=== PATIENT | female | born 1970 | race Caucasian/White ===

== ENCOUNTER → 2018-01-07 | Outpatient (CLI) | payer BC ==
[~2018-01-07] MED LIST: IBU800 PO
--- NOTE | 2018-01-07 16:05 | RADIOLOGY IMAGING REPORT ---
FAC[place] [facility] [place]IENT NAME: RIA THEODORE : [id number] MR: [id number] V: [id number] EXAM DATE: [id number] ORDERING PHYSICIAN: JULEE FAULKNER TECHNOLOGIST: Sarah Priest PROCEDURE:BILATERAL DIGITAL SCREENING MAMMOGRAM WITH CAD ASSISTED INTERPRETATION & 3D TOMOSYNTHESIS COMPARISON:Prior mammograms 01/05/2017, 12/22/2015, 10/29/2014. INDICATIONS:SCREENING FINDINGS: The breast tissue demonstrates scattered fibroglandular densities. Scattered asymmetries are stable. There is no dominant mass, suspicious cluster of microcalcifications or persistent areas of architectural distortion. DIAGNOSTIC CATEGORY 1--NEGATIVE. RECOMMENDATIONS: ROUTINE MAMMOGRAM AND CLINICAL EVALUATION IN 1 YR. IMPRESSION: BIRADS 1: Negative. Dictated by: Elio Estevez M.D. on 01/07/2018 at 15:54 Transcribed by: YOHANA on 01/07/2018 at 16:00 Approved by: Elio Estevez M.D. on 01/07/2018 at 16:04 [facility]
== END ==
LOC: MAMO 03:14
PROVIDERS: ATTEND Nurse Practitioner Family
DX: Z12.31 Encounter for screening mammogram for malignant neoplasm of breast (principal)
CPT/HCPCS: 77063; 77067